=== PATIENT | female | born 1965 | race African-American/Black ===

== ENCOUNTER 2024-05-12 17:53 | Inpatient (IN) | payer MEDICAID, OTHER ==
[~2024-05-12] VITALS: Ht 167.6 cm; Wt 72.1 kg
[~2024-05-12 17:53] MED LIST: ARIP15TA66 PO; DEPAKOTE; INSLAN SQ; INSULIN; LOSA50TA41 PO; NITR4.1S2 TL; RISPERDAL
[2024-05-12 18:00] VITALS: O2SAT 99
[2024-05-12 19:25] LABS: BASOPHILS % 0.4 % (0.0-2.0); HEMATOCRIT. 38.8 % (36.0-48.0); HEMOGLOBIN. 13.5 g/dL (12.0-16.0); LYMPHOCYTES % 19.5 % (20.0-50.0); MEAN CORPUSCULAR HEMOGLOBIN 30.6 pg (28.0-32.0); MEAN CORPUSCULAR HGB CONC 34.8 g/dL (31.0-37.0); MEAN CORPUSCULAR VOLUME 87.7 fL (81.0-99.0); MEAN PLATELET VOLUME 6.5 fl (7.4-10.4); MONOCYTES % 13.1 % (2.0-8.0); PLATELET 241 x1000/uL (130-400); RED BLOOD CELL COUNT 4.42 mill/uL (4.2-5.4); RED CELL DISTRIBUTION WIDTH 12.7 % (11.6-14.6); WHITE BLOOD COUNT 8.5 x1000/uL (4.5-11.0)
[2024-05-12 19:32] LABS: CARBON DIOXIDE 25 mEq/L (21-32); CHLORIDE 102 mEq/L (98-107); POTASSIUM 3.9 mEq/L (3.5-5.1); SODIUM 133 mEq/L (136-145)
[2024-05-12 19:33] LABS: CALCIUM 8.6 mg/dL (8.7-10.4)
[2024-05-12 19:38] LABS: CREATININE 0.7 mg/dL (0.6-1.0); GLUCOSE 247 mg/dL (70-105); UREA NITROGEN BLOOD 12 mg/dL (9-23)
[2024-05-12] MEDS: HYDROCODONE/ACETAMINOPHEN 5/325MG TABLET PO ONE (21:12)
[2024-05-12] MEDS: PIPERACILLIN/TAZO 3.375G/50ML 50 ML IV SCH (21:12)
[2024-05-12] MEDS: INSULIN GLARGINE 100 UNITS/ML SUBCUT SCH (22:00)
[2024-05-12] MEDS ORDERED: NA PHOS,M-B/NA PHOS,DI-BA ENEMA 118ML PR PRN (22:45)
[2024-05-12] MEDS ORDERED: MAGNESIUM/ALUMINUM HYDROXIDE/SIMETHICONE 30ML UDC PO PRN (22:45)
[2024-05-12] MEDS ORDERED: DOCUSATE SODIUM 100MG CAPSULE PO PRN (22:45)
[2024-05-12] MEDS ORDERED: ACETAMINOPHEN 325MG TABLET PO PRN ×2 (22:45)
[2024-05-12] MEDS ORDERED: CLONIDINE 0.1MG TABLET PO PRN (22:45)
[2024-05-12] MEDS ORDERED: ONDANSETRON HCL 4MG/2ML INJ IV PRN (22:45)
[2024-05-12] MEDS ORDERED: DEXTROSE 50% WATER 50ML SYRINGE IV PRN (22:45)
[2024-05-12] MEDS ORDERED: GUAIFENESIN 200MG/10ML SUGAR FREE UDC PO PRN (22:45)
[2024-05-12] MEDS ORDERED: IPRATROPIUM/ALBUTEROL 0.5-3(2.5)MG/3ML NEB HHN PRN (22:59)
[2024-05-12] MEDS ORDERED: SODIUM CHLORIDE 0.9% 1,000 ML IV NR (23:15)
[2024-05-12] MEDS: VANCOMYCIN 1.25GM PMX (XELLIA) 250 ML IV NR (23:30)
[2024-05-13] VITALS (7 sets, daily range): BP systolic 94–125; BP diastolic 51–70; PULSE 71–88; RESP 16–18; TEMP 36.28068–37.05852; O2SAT 95–100
[2024-05-13] MEDS ORDERED: IPRATROPIUM/ALBUTEROL 0.5-3(2.5)MG/3ML NEB HHN PRN (00:04)
[2024-05-13] MEDS: INSULIN LISPRO 100 UNITS/ML SUBCUT SCH ×2 (00:10→08:20)
[2024-05-13] MEDS: SODIUM CHLORIDE 0.9% 1,000 ML IV SCH (00:48)
[2024-05-13] MEDS: HYDROCODONE/ACETAMINOPHEN 7.5/325MG TABLET PO PRN (01:24)
[2024-05-13] MEDS ORDERED: ALBUTEROL 6.7GM HFA INHALER ORI PRN (03:00)
[2024-05-13] MEDS: PIPERACILLIN/TAZO 3.375G/50ML 50 ML IV SCH ×2 (06:00→15:10)
[2024-05-13 06:38] LABS: CARBON DIOXIDE 27 mEq/L (21-32); CHLORIDE 104 mEq/L (98-107); POTASSIUM 3.9 mEq/L (3.5-5.1); SODIUM 136 mEq/L (136-145)
[2024-05-13 06:39] LABS: CALCIUM 8.7 mg/dL (8.7-10.4)
[2024-05-13 06:44] LABS: GLUCOSE 124 mg/dL (70-105); TRIGLYCERIDE 144 mg/dL (0-150); UREA NITROGEN BLOOD 18 mg/dL (9-23)
[2024-05-13 06:45] LABS: LDL CHOLESTEROL 74 mg/dL (5-100)
[2024-05-13 06:46] LABS: CHOLESTEROL 116 mg/dL (<200); HDL CHOLESTEROL < 20 mg/dL (>65)
[2024-05-13 07:32] LABS: BASOPHILS % 0.2 % (0.0-2.0); EOSINOPHILS % 0.2 % (0.0-5.0); HEMOGLOBIN. 13.3 g/dL (12.0-16.0); LYMPHOCYTES % 27.8 % (20.0-50.0); MEAN CORPUSCULAR HEMOGLOBIN 31.2 pg (28.0-32.0); MEAN CORPUSCULAR VOLUME 88.9 fL (81.0-99.0); MEAN PLATELET VOLUME 6.9 fl (7.4-10.4); MONOCYTES % 13.8 % (2.0-8.0); PLATELET 217 x1000/uL (130-400); RED BLOOD CELL COUNT 4.27 mill/uL (4.2-5.4); RED CELL DISTRIBUTION WIDTH 12.8 % (11.6-14.6); WHITE BLOOD COUNT 7.7 x1000/uL (4.5-11.0)
[2024-05-13] MEDS ORDERED: BUDESONIDE 0.5MG/2ML NEB ORI SCH (09:00)
[2024-05-13] MEDS: BLOOD SUGAR DIAGNOSTIC STRIP TEST SCH (09:53)
[2024-05-13] MEDS: NICOTINE 21MG PATCH TD SCH (09:57)
[2024-05-13] MEDS: VANCOMYCIN 1G PREMIX 200 ML IV SCH (12:08)
[2024-05-14] VITALS: BP 96/59; PULSE 81; RESP 18; TEMP 36.61404; O2SAT 97
[2024-05-14] MEDS: HYDROCODONE/ACETAMINOPHEN 5/325MG TABLET PO PRN (00:47)
[2024-05-14 02:32] LABS: *AMPHETAMINES SCREEN URINE NEGATIVE (NEGATIVE); *BARBITURATES SCREEN URINE NEGATIVE (NEGATIVE); *BENZODIAZEPINES SCREEN URINE NEGATIVE (NEGATIVE); *COCAINE SCREEN URINE NEGATIVE (NEGATIVE); METHADONE URINE SCREEN NEGATIVE (NEGATIVE); OPIATES URINE SCREEN PRESUMPTIVE POSITIVE (NEGATIVE)
[2024-05-14 02:33] LABS: CANNABINOID URINE SCREEN NEGATIVE (NEGATIVE); ECSTASY MDMA SCREEN URINE NEGATIVE (NEGATIVE); PHENCYCLIDINE URINE SCREEN PRESUMTIVE POSITIVE (NEGATIVE)
[2024-05-14 02:50] LABS: CLARITY URINE CLOUDY (CLEAR); COLOR URINE YELLOW (YELLOW); GLUCOSE URINE NEGATIVE (NEGATIVE); KETONES URINE NEGATIVE (NEGATIVE); LEUKOCYTE ESTERASE URINE 2+ (NEGATIVE); NITRITE URINE NEGATIVE (NEGATIVE); OCCULT BLOOD URINE NEGATIVE (NEGATIVE); PROTEIN URINE 1+ (NEGATIVE); SPECIFIC GRAVITY URINE 1.018 (1.005-1.030); UROBILINOGEN URINE 0.2 E.U./dL (0.2-1.0)
[2024-05-14 03:50] LABS: SQUAMOUS EPITHELIAL CELL URINE 1+ /lpf (RARE/1+)
[2024-05-14 03:59] LABS: BACTERIA URINE NONE SEEN
[2024-05-14 04:00] VITALS: BP 96/54; PULSE 75; RESP 18; TEMP 36.3918; O2SAT 100
[2024-05-14] MEDS: VANCOMYCIN 750MG/150ML (BAXTER) IV SCH (04:23)
[2024-05-14 06:24] LABS: CHLORIDE 105 mEq/L (98-107); POTASSIUM 4.5 mEq/L (3.5-5.1); SODIUM 136 mEq/L (136-145)
[2024-05-14 06:25] LABS: CALCIUM 8.2 mg/dL (8.7-10.4); CARBON DIOXIDE 20 mEq/L (21-32)
[2024-05-14 06:30] LABS: CREATININE 1.1 mg/dL (0.6-1.0); GLUCOSE 151 mg/dL (70-105); UREA NITROGEN BLOOD 25 mg/dL (9-23)
[2024-05-14] MEDS ORDERED: NALOXONE HCL 0.4MG/ML VIAL IV PRN (11:45)
[2024-05-14 12:00] VITALS: BP 108/78; PULSE 89; RESP 18; TEMP 36.6696; O2SAT 100
[2024-05-14] MEDS ORDERED: IODIXANOL 320MG/ML 100 ML BOTTLE IV ONE ×2 (12:18→13:08)
[2024-05-14] MEDS ORDERED: MIDAZOLAM HCL 2 MG/2 ML VIAL ONE ×2 (12:19→12:51)
[2024-05-14] MEDS ORDERED: FENTANYL CITRATE/PF 50MCG/ML 2ML VIAL ONE ×2 (12:19→12:50)
[2024-05-14] MEDS ORDERED: LIDOCAINE HCL 1% 20ML VIAL ONE (12:20)
[2024-05-14] MEDS: CLOPIDOGREL 75MG TABLET PO SCH (12:30)
[2024-05-14] MEDS ORDERED: HEPARIN 1000 UNITS/ML 10ML ONE (12:35)
[2024-05-14] MEDS ORDERED: DIPHENHYDRAMINE 50MG/ML VIAL ONE (12:53)
[2024-05-14] MEDS ORDERED: HYDROMORPHONE HCL/PF 2MG/ML INJ ONE (13:46)
[2024-05-14] MEDS ORDERED: ONDANSETRON HCL 4MG/2ML INJ ONE (13:48)
[2024-05-14] MEDS ORDERED: VANCOMYCIN 1.25GM PMX (XELLIA) 250 ML IV SCH (14:00)
[2024-05-14] MEDS: VANCOMYCIN 500MG PREMIX 100 ML IV SCH (15:41)
[2024-05-14 16:00] VITALS: BP 111/63; PULSE 73; RESP 18; TEMP 36.28068; O2SAT 95
[2024-05-14 20:00] VITALS: RESP 18
[2024-05-15] VITALS: RESP 18
[2024-05-15 04:00] VITALS: RESP 18
[2024-05-15 06:50] LABS: CARBON DIOXIDE 24 mEq/L (21-32); CHLORIDE 105 mEq/L (98-107); POTASSIUM 4.3 mEq/L (3.5-5.1); SODIUM 136 mEq/L (136-145)
[2024-05-15 06:51] LABS: CALCIUM 8.7 mg/dL (8.7-10.4)
[2024-05-15 06:56] LABS: GLUCOSE 163 mg/dL (70-105); UREA NITROGEN BLOOD 15 mg/dL (9-23)
[2024-05-15 07:56] LABS: BASOPHILS % 0.3 % (0.0-2.0); HEMATOCRIT. 36.4 % (36.0-48.0); HEMOGLOBIN. 12.5 g/dL (12.0-16.0); LYMPHOCYTES % 22.9 % (20.0-50.0); MEAN CORPUSCULAR HGB CONC 34.3 g/dL (31.0-37.0); MEAN CORPUSCULAR VOLUME 90.2 fL (81.0-99.0); MEAN PLATELET VOLUME 7.2 fl (7.4-10.4); MONOCYTES % 7.8 % (2.0-8.0); PLATELET 195 x1000/uL (130-400); RED BLOOD CELL COUNT 4.04 mill/uL (4.2-5.4); RED CELL DISTRIBUTION WIDTH 12.8 % (11.6-14.6); WHITE BLOOD COUNT 9.6 x1000/uL (4.5-11.0)
[2024-05-15 08:00] VITALS: BP 134/69; PULSE 82; RESP 20; TEMP 36.114; O2SAT 100
[2024-05-15 12:00] VITALS: BP 158/80; PULSE 82; RESP 18; TEMP 36.7; O2SAT 98
[2024-05-15] MEDS: VANCOMYCIN 1.25GM PMX (XELLIA) 250 ML IV SCH (14:54)
[2024-05-15] MEDS ORDERED: VANCOMYCIN 1.25GM PMX (XELLIA) 250 ML IV SCH (15:00)
[2024-05-15 16:00] VITALS: BP 147/69; PULSE 79; RESP 19; TEMP 36.7; O2SAT 99
[2024-05-16 06:39] LABS: BASOPHILS % 0.2 % (0.0-2.0); EOSINOPHILS % 1.5 % (0.0-5.0); HEMATOCRIT. 34.6 % (36.0-48.0); HEMOGLOBIN. 11.9 g/dL (12.0-16.0); LYMPHOCYTES % 32.6 % (20.0-50.0); MEAN CORPUSCULAR HEMOGLOBIN 30.7 pg (28.0-32.0); MEAN CORPUSCULAR HGB CONC 34.4 g/dL (31.0-37.0); MEAN CORPUSCULAR VOLUME 89.5 fL (81.0-99.0); MEAN PLATELET VOLUME 7.1 fl (7.4-10.4); MONOCYTES % 9.2 % (2.0-8.0); NEUTROPHILS % 56.5 % (40.0-76.0); PLATELET 190 x1000/uL (130-400); RED BLOOD CELL COUNT 3.87 mill/uL (4.2-5.4); RED CELL DISTRIBUTION WIDTH 12.9 % (11.6-14.6); WHITE BLOOD COUNT 8.5 x1000/uL (4.5-11.0)
[2024-05-16 06:41] LABS: CHLORIDE 105 mEq/L (98-107); POTASSIUM 4.2 mEq/L (3.5-5.1); SODIUM 136 mEq/L (136-145)
[2024-05-16 06:42] LABS: CALCIUM 8.6 mg/dL (8.7-10.4); CARBON DIOXIDE 25 mEq/L (21-32)
[2024-05-16 06:47] LABS: CREATININE 0.9 mg/dL (0.6-1.0); GLUCOSE 174 mg/dL (70-105); UREA NITROGEN BLOOD 13 mg/dL (9-23)
[2024-05-16] MEDS: DIPHENHYDRAMINE 50MG/ML VIAL IV PRN (09:27)
[2024-05-16 12:00] VITALS: BP 162/89; PULSE 79; RESP 20; TEMP 36.7; O2SAT 100
[2024-05-16 16:00] VITALS: BP 134/76; PULSE 72; RESP 20; TEMP 36.3; O2SAT 100
[2024-05-17] VITALS: BP 108/54; PULSE 72; RESP 18; TEMP 36.7; O2SAT 96
[2024-05-17 04:00] VITALS: BP 123/60; PULSE 65; RESP 18; TEMP 35.8; O2SAT 100
[2024-05-17 06:14] LABS: CHLORIDE 106 mEq/L (98-107); POTASSIUM 4.1 mEq/L (3.5-5.1); SODIUM 139 mEq/L (136-145)
[2024-05-17 06:15] LABS: CARBON DIOXIDE 26 mEq/L (21-32)
[2024-05-17 06:16] LABS: CALCIUM 8.8 mg/dL (8.7-10.4)
[2024-05-17 06:20] LABS: CREATININE 0.8 mg/dL (0.6-1.0); GLUCOSE 187 mg/dL (70-105)
[2024-05-17 06:21] LABS: UREA NITROGEN BLOOD 10 mg/dL (9-23)
[2024-05-17 06:48] LABS: BASOPHILS % 0.2 % (0.0-2.0); EOSINOPHILS % 1.4 % (0.0-5.0); HEMATOCRIT. 36.3 % (36.0-48.0); HEMOGLOBIN. 12.2 g/dL (12.0-16.0); LYMPHOCYTES % 28.2 % (20.0-50.0); MEAN CORPUSCULAR HEMOGLOBIN 30.6 pg (28.0-32.0); MEAN CORPUSCULAR HGB CONC 33.7 g/dL (31.0-37.0); MEAN CORPUSCULAR VOLUME 90.6 fL (81.0-99.0); MEAN PLATELET VOLUME 7.2 fl (7.4-10.4); MONOCYTES % 9.1 % (2.0-8.0); NEUTROPHILS % 61.1 % (40.0-76.0); PLATELET 211 x1000/uL (130-400); RED CELL DISTRIBUTION WIDTH 12.8 % (11.6-14.6); WHITE BLOOD COUNT 9.6 x1000/uL (4.5-11.0)
[2024-05-17] MEDS ORDERED: POLYMYXIN B SULFATE 500000 UNITS/VIAL ONE (06:53)
[2024-05-17] MEDS ORDERED: LIDOCAINE HCL 1% 10 MG/ML 10ML VIAL ONE (06:54)
[2024-05-17] MEDS ORDERED: BUPIVACAINE HCL/PF 0.5% (5MG/ML) 10ML ONE (06:54)
[2024-05-17] MEDS ORDERED: FENTANYL CITRATE/PF 50MCG/ML 2ML VIAL ONE (07:27)
[2024-05-17] MEDS ORDERED: MIDAZOLAM HCL 2 MG/2 ML VIAL ONE (07:28)
[2024-05-17] MEDS ORDERED: PROPOFOL 200MG/20ML VIAL IV ONE (07:28)
[2024-05-17] MEDS ORDERED: LIDOCAINE HCL 1% 20ML VIAL ONE (07:30)
[2024-05-17] MEDS ORDERED: ONDANSETRON HCL 4MG/2ML INJ IV PRN (08:15)
[2024-05-17] MEDS ORDERED: LABETALOL 5MG/ML 4ML INJ IV PRN (08:15)
[2024-05-17] MEDS: MEPERIDINE HCL/PF 25MG/ML CPJ IV PRN (10:15)
[2024-05-17] MEDS: HYDROMORPHONE HCL/PF 1MG/ML INJ IV PRN (11:30)
[2024-05-17 12:00] VITALS: BP 143/71; PULSE 66; RESP 16; TEMP 36.7; O2SAT 100
[2024-05-17 16:00] VITALS: BP 130/70; PULSE 70; RESP 17; TEMP 36.7; O2SAT 99
[2024-05-17] MEDS: GABAPENTIN 300MG CAPSULE PO SCH (22:24)
[2024-05-17] MEDS: MORPHINE SULFATE 2 MG/ML INJ (NOT FOR IM USE) IV PRN (23:48)
[2024-05-18 07:51] LABS: CHLORIDE 104 mEq/L (98-107); POTASSIUM 4.3 mEq/L (3.5-5.1); SODIUM 136 mEq/L (136-145)
[2024-05-18 07:52] LABS: CARBON DIOXIDE 23 mEq/L (21-32)
[2024-05-18 07:53] LABS: CALCIUM 8.8 mg/dL (8.7-10.4)
[2024-05-18 07:57] LABS: GLUCOSE 291 mg/dL (70-105)
[2024-05-18 07:58] LABS: UREA NITROGEN BLOOD 18 mg/dL (9-23)
[2024-05-18 08:00] VITALS: BP 141/66; PULSE 71; RESP 17; TEMP 37.1; O2SAT 99
[2024-05-18] MEDS ORDERED: HYDROCODONE/ACETAMINOPHEN 5/325MG TABLET PO PRN (08:00)
[2024-05-18] MEDS ORDERED: HYDROCODONE/ACETAMINOPHEN 7.5/325MG TABLET PO PRN (08:00)
[2024-05-18 08:01] LABS: BASOPHILS % 0.2 % (0.0-2.0); EOSINOPHILS % 0.7 % (0.0-5.0); HEMATOCRIT. 33.6 % (36.0-48.0); HEMOGLOBIN. 11.7 g/dL (12.0-16.0); LYMPHOCYTES % 23.5 % (20.0-50.0); MEAN CORPUSCULAR HEMOGLOBIN 30.9 pg (28.0-32.0); MEAN CORPUSCULAR HGB CONC 34.8 g/dL (31.0-37.0); MEAN PLATELET VOLUME 7.1 fl (7.4-10.4); NEUTROPHILS % 68.6 % (40.0-76.0); PLATELET 257 x1000/uL (130-400); RED BLOOD CELL COUNT 3.77 mill/uL (4.2-5.4); RED CELL DISTRIBUTION WIDTH 12.9 % (11.6-14.6); WHITE BLOOD COUNT 13.3 x1000/uL (4.5-11.0)
[2024-05-18] MEDS ORDERED: NICO-789 TD (10:45)
[2024-05-18] MEDS ORDERED: CLOP-31 PO (10:45)
[2024-05-18] MEDS ORDERED: TOPUD PO (10:45)
[2024-05-18] MEDS ORDERED: GABA-1180 PO (10:45)
[2024-05-18] MEDS ORDERED: AMOX1TAB15 MT (10:53)
[2024-05-18 12:00] VITALS: BP 123/60; PULSE 79; RESP 18; TEMP 36.6; O2SAT 99
[2024-05-18] MEDS: INSULIN LISPRO 100 UNITS/ML SUBCUT SCH (12:49)
[2024-05-18] MEDS ORDERED: LIP40 MT (12:54)
[2024-05-18 16:00] VITALS: BP 130/66; PULSE 80; RESP 19; TEMP 36.4; O2SAT 100
[2024-05-18] MEDS ORDERED: INSULIN GLARGINE 100 UNITS/ML SUBCUT SCH (22:00)
== END 2024-05-18 18:35 | disposition home health service (06) | DRG 182 ==
LOC: ER 17:53 → 5WST 21:31 → EDBEDREQTM 21:44 → EDBEDREQ 21:44 → 6WST 05-14 11:27
PROVIDERS: ADMIT Internal Medicine; ATTEND Internal Medicine
PROC: 047L3ZZ Dilation of Left Femoral Artery, Percutaneous Approach (ICD-10-PCS; 2024-05-14)
PROC: 04CL3ZZ Extirpation of Matter from Left Femoral Artery, Percutaneous Approach (ICD-10-PCS; 2024-05-14)
PROC: 04CN3ZZ Extirpation of Matter from Left Popliteal Artery, Percutaneous Approach (ICD-10-PCS; 2024-05-14)
PROC: 047N3ZZ Dilation of Left Popliteal Artery, Percutaneous Approach (ICD-10-PCS; 2024-05-14)
PROC: 047Q3ZZ Dilation of Left Anterior Tibial Artery, Percutaneous Approach (ICD-10-PCS; 2024-05-14)
PROC: 047W3ZZ Dilation of Left Foot Artery, Percutaneous Approach (ICD-10-PCS; 2024-05-14)
PROC: B41G1ZZ Fluoroscopy of Left Lower Extremity Arteries using Low Osmolar Contrast (ICD-10-PCS; 2024-05-14)
PROC: B41J1ZZ Fluoroscopy of Other Lower Arteries using Low Osmolar Contrast (ICD-10-PCS; 2024-05-14)
PROC: 0Y6W0Z0 Detachment at Left 4th Toe, Complete, Open Approach (ICD-10-PCS; principal; 2024-05-17)
PROC: 0Y6Y0Z2 Detachment at Left 5th Toe, Mid, Open Approach (ICD-10-PCS; 2024-05-17)
DX: E11.52 Type 2 diabetes mellitus with diabetic peripheral angiopathy with gangrene (principal); E87.1 Hypo-osmolality and hyponatremia; E11.621 Type 2 diabetes mellitus with foot ulcer; I95.9 Hypotension, unspecified; I96 Gangrene, not elsewhere classified; E11.65 Type 2 diabetes mellitus with hyperglycemia; F17.210 Nicotine dependence, cigarettes, uncomplicated; I10 Essential (primary) hypertension; J44.89 Other specified chronic obstructive pulmonary disease; L97.529 Non-pressure chronic ulcer of other part of left foot with unspecified severity; Z79.899 Other long term (current) drug therapy; Z82.49 Family history of ischemic heart disease and other diseases of the circulatory system; Z83.3 Family history of diabetes mellitus
CPT/HCPCS: 36415; 37225; 37228; 71045; 73630; 75710; 80048; 80061; 80202; 80305; 81003; 82962; 83036; 84145; 85025; 87070; 87075; 87077; 87186; 88304; 88311; 93005; 93923; 93970; 97162; 97535; 99285; C1725; C1769; C1887; C1893; C1894; C2623; J0665; J1171; J1200; J1644; J1815; J2003; J2175; J2250; J2270; J2405; J2543; J2704; J3010; J3370; J3490; J7030; Q9967; C1714